=== PATIENT | male | born 1950 | race Caucasian/White ===

== ENCOUNTER 2019-11-19 20:01 | Emergency (ER) | payer MEDICARE, OTHER ==
--- NOTE | 2019-11-19 20:44 | EDM.PDOC ---
ED HPI GENERAL MEDICAL PROBLEM - General Chief Complaint: General Stated Complaint: SHORT OF BREATH,FEVER??? Time Seen by Provider: 11/19/19 20:10 Source of Information: Reports: Provider, RN History Limitations: Reports: Altered Mental Status - History of Present Illness INITIAL COMMENTS - FREE TEXT/NARRATIVE: 69-year-old male is brought in by EMS from [facility]. [place] provider called me informing me that the patient was being transferred for possible elevated blood pressure and shortness of breath. Patient was just admitted into the [facility] recently. Evidently the patient has a history of Alzheimer's dementia and was been treated inpatient at [facility] for UTI. He is on oral antibiotics. He has an indwelling Louis catheter with a leg bag. Upon patient's arrival he was in mild distress was able to state to me that he is having belly pain. He was straining trying to have a bowel movement. Upon further inspection of the patient's Louis, his leg bag was upside down and louis was inserted into the drainage part of the bag with it clamped. His Louis bag was empty. He was bladder scanned at 615 mL. His Louis was then flushed and showed no resistance and new bag was placed. Patient was draining urine without difficulty into the bag. His urine was very dark and concentrated. Suggest he is dehydrated. After approximately half hour later his blood pressure and pulse improved he was resting comfortably and his belly and abdomen were soft. Lab work was drawn including an EKG. 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 CBC showed leukocytosis and elevated neutrophils likely from results of his urinary tract infection. Onset: Today Location: Reports: Abdomen Quality: Reports: Pressure Severity: Moderate Improves with: Reports: None Worsens with: Reports: None Associated Symptoms: Reports: Confusion (dementia) - Related Data Allergies Allergy/AdvReac Type Severity Reaction Status Date / Time No Known Allergies Allergy Verified 11/19/19 22:46 ED ROS GENERAL - Review of Systems Review Of Systems: Unable To Obtain (due to patients dementia) Reason Not Obtained: dementia ED EXAM, GENERAL - Physical Exam Exam: See Below Exam Limited By: Altered Mental Status (confused) General Appearance: Alert, WD/WN, Mild Distress Eye Exam: Bilateral Eye: EOMI Ears: Hearing Grossly Normal Nose: Normal Inspection Throat/Mouth: Normal Inspection, Normal Voice, No Airway Compromise Head: Atraumatic, Normocephalic Neck: Normal Inspection, Supple, Non-Tender. No: Lymphadenopathy (L), Lymphadenopathy (R) Respiratory/Chest: No Respiratory Distress, Lungs Clear, Normal Breath Sounds, No Accessory Muscle Use. No: Respiratory Distress, Decreased Breath Sounds, Crackles Cardiovascular: Regular Rate, Rhythm, No Murmur Peripheral Pulses: 2+: Carotid (L), Carotid (R) GI/Abdominal: Normal Bowel Sounds, Distended (Male) Exam: Scrotal Swelling, Other (Indwelling catheter, patient has a leg Louis that was noticed to be upside down and inserted into the Louis through the drain with a clamped off. There is no urine in the bag.) Rectal (Males) Exam: Other (Patient had a BM in the toilet without evidence of bloody stool) Back Exam: Normal Inspection Extremities: Normal Inspection Neurological: Alert, Confused (Pleasantly confused) Psychiatric: Depressed Mood, Flat Affect Skin Exam: Warm, Dry, Intact, Normal Color, No Rash Lymphatic: No Adenopathy EKG INTERPRETATION EKG Date: 11/19/19 Rhythm: NSR Rate (Beats/Min): 96 [place]: LAD-Left [place] Deviation P-Wave: Present QRS: Normal ST-T: Normal QT: Normal Comparison: NA - No Prior EKG EKG Interpretation Comments: Normal sinus rhythm Left axis deviation inferior infarct age undetermined Abnormal ECG Course - Vital Signs Last Recorded V/S: Last Vital Signs Temp 97.1 F 11/19/19 22:20 Pulse 73 11/19/19 22:44 Resp 14 11/19/19 22:44 BP 125/51 L 11/19/19 22:44 Pulse Ox 95 11/19/19 22:44 - Orders/Labs/Meds Orders: Active Orders 24 hr Category Date Time Status EKG Documentation Completion [RC] ASDIRECTED Care 11/19/19 20:15 Active CULTURE URINE [RM] Stat Lab 11/19/19 22:43 Ordered EKG 12 Lead [EK] Stat Ther 11/19/19 20:14 Ordered Labs: Laboratory Tests 11/19/19 11/19/19 11/19/19 Range/Units 20:40 20:40 22:00 WBC 17.31 H (5.00-10.00) 10^3/uL RBC 4.40 L (4.50-6.00) 10^6/uL Hgb 14.4 (13.0-17.0) g/dL Hct 40.7 (40.0-52.0) % MCV 92.5 H (82.0-92.0) fL MCH 32.7 H (27.0-31.0) pg MCHC 35.4 (32.0-36.0) g/dL RDW 12.4 (11.5-14.5) % Plt Count 215 (150-400) 10^3/uL MPV 9.9 (7.4-10.4) fL Immature Gran % (Auto) 1.2 (0.0-5.0) % Neut % (Auto) 87.8 H (50.0-70.0) % Lymph % (Auto) 4.3 L (20.0-40.0) % [place] % (Auto) 6.4 (2.0-8.0) % Eos % (Auto) 0.2 L (1.0-3.0) % Baso % (Auto) 0.1 (0.0-1.0) % Neut # (Auto) 15.20 H (2.50-7.00) 10^3/uL Lymph # (Auto) 0.75 L (1.00-4.00) 10^3/uL [place] # (Auto) 1.10 H (0.10-0.80) 10^3/uL Eos # (Auto) 0.03 L (0.10-0.30) 10^3/uL Baso # (Auto) 0.02 (0.00-0.10) 10^3/uL Immature Gran # (Auto) 0.21 (0.00-0.50) 10^3/uL Sodium 140 (136-145) mmol/L Potassium 3.5 (3.3-5.3) mmol/L Chloride 105 (98-115) mmol/L Carbon Dioxide 20.3 L (21.0-32.0) mmol/L Anion Gap 18.2 H (5-15) mmol/L BUN 21 (6-25) mg/dL Creatinine 1.36 H (0.51-1.17) mg/dL Est Cr Clr Drug Dosing 51.44 mL/min Estimated GFR (MDRD) 52 mL/min Glucose 172 H (75 - 99) mg/dL Calcium 8.8 (8.7-10.3) mg/dL Total Bilirubin 1.0 (0.2-1.0) mg/dL AST 27 (15-37) U/L ALT 66 (12-78) U/L Alkaline Phosphatase 67 (46-116) IU/L Troponin I 0.05 (0.00-0.070) ng/mL Total Protein 7.5 (6.4-8.2) g/dL Albumin 2.91 L (3.00-4.80) g/dL Specimen Type Urincath Urine Color Yellow (YELLOW) Urine Appearance Cloudy H (CLEAR) Urine pH 5.0 (5.0-9.0) Ur Specific [place] 1.020 (1.005-1.030) Urine Protein 30 H (NEGATIVE) mg/dL Urine Glucose (UA) 100 H (NEGATIVE) mg/dL Urine Ketones Negative (NEGATIVE) mg/dL Urine Occult Blood Large H (NEGATIVE) Urine Nitrite Negative (NEGATIVE) Urine Bilirubin Negative (NEGATIVE) Urine Urobilinogen 0.2 (0.2-1.0) E.U./dL Ur Leukocyte Esterase Moderate H (NEGATIVE) Urine RBC 75-100 H (0-5) /HPF Urine WBC 50-75 H (0-5) /HPF Ur Epithelial Cells Rare /LPF Amorphous Sediment Many H (0/HPF) /HPF Urine Bacteria Few (NONE TO FEW) /HPF Meds: Medications Discontinued Medications Generic Name Dose Route Start Last Admin Trade Name Gildardoq PRN Reason Stop Dose Admin Ceftriaxone Sodium 1 gm 11/19/19 22:29 11/19/19 22:35 Rocephin IVPUSH 11/19/19 22:30 1 gm ONETIME ONE Administration Sodium Chloride 1,000 mls @ 999 mls/hr 11/19/19 21:10 11/19/19 21:10 Normal Saline IV 11/19/19 22:10 999 mls/hr .BOLUS ONE Administration Sterile Water Confirm 11/19/19 22:33 11/19/19 22:35 Sterile Water For Injection Administered 11/19/19 22:34 10 mls/hr Dose Administration 20 mls @ as directed .ROUTE .STK-MED ONE - Re-Assessments/Exams Free Text/Narrative Re-Assessment/Exam: 11/19/19 22:20 Patient is now resting comfortably. Denies abdominal pain. His blood pressure 142/51, and pulse is 78. He is resting comfortably sleeping on his side. Departure - Departure Time of Disposition: 23:30 Disposition: DC/Tfer to SNF 03 Condition: Fair Clinical Impression: Neutrophilic leukocytosis, Dehydration Urinary tract infection associated with indwelling urethral catheter Qualifiers: Encounter type: initial encounter Qualified Code(s): T83.511A - Infection and inflammatory reaction due to indwelling urethral catheter, initial encounter Dementia Qualifiers: Dementia type: unspecified type Dementia behavioral disturbance: without behavioral disturbance Qualified Code(s): F03.90 - Unspecified dementia without behavioral disturbance - Discharge Information Referrals: Karen Haywood MD [Primary Care Provider] - Forms: ED Department Discharge Sepsis Event Note - Focused Exam Vital Signs: Vital Signs Temp Pulse Resp BP Pulse Ox 11/19/19 22:44 73 14 125/51 L 95 11/19/19 22:20 97.1 F 83 14 142/51 H 93 L 11/19/19 21:30 88 14 157/61 H 95 11/19/19 21:00 93 16 189/84 H 95 11/19/19 20:45 97 16 159/71 H 95 11/19/19 20:01 97.7 F 101 H 26 H 169/95 H 95 Date Exam was Performed: 11/19/19 Time Exam was Performed: 22:48 - My Orders Last 24 Hours: My Active Orders 11/19/19 20:14 EKG 12 Lead [EK] Stat 11/19/19 20:15 EKG Documentation Completion [RC] ASDIRECTED 11/19/19 22:43 CULTURE URINE [RM] Stat - Assessment/Plan Last 24 Hours: My Active Orders 11/19/19 20:14 EKG 12 Lead [EK] Stat 11/19/19 20:15 EKG Documentation Completion [RC] ASDIRECTED 11/19/19 22:43 CULTURE URINE [RM] Stat Assessment:: 1. Neutrophilic leukocytosis likely secondary to urinary tract infection, currently on oral antibiotics. Patient was given 1 g of IV Rocephin. 2. Hypertension urgency secondary to obstructing Louis catheter placed incorrectly. Now corrected 3. Dehydration, 1 L normal saline IV fluids given. 4. Dementia/Alzheimer's, stable 5. Continue patient on oral Levaquin for UTI 6. Urine has been cultured, follow-up needs to be on Friday with primary care and evaluation. Plan: 1. Patient will given 1 L normal saline IV for dehydration 2. Rocephin 1 g IV, continue oral antibiotics for UTI 3. Encourage nursing staff to push oral fluids. 4. Proper placement of Louis will be educated to alf. 5. Follow-up with primary care on Friday, new urine analysis and culture has been taken in the emergency room.
[2019-11-19] MEDS: Sodium Chloride 0.9% 1,000 ML IV ONE (21:10)
[2019-11-19 21:24] LABS: ANION GAP 18.2 mmol/L (5-15)
[2019-11-19] MEDS: cefTRIAXone 1 GM Vial IVPUSH ONE (22:35)
[2019-11-19] MEDS: Water For Injection, Sterile 20 ML ONE (22:35)
== END 2019-11-19 23:45 ==
LOC: KA.ED 20:01
DX: T83.511A Infection and inflammatory reaction due to indwelling urethral catheter, initial encounter (principal); D72.828 Other elevated white blood cell count; E86.0 Dehydration; F03.90 Unspecified dementia, unspecified severity, without behavioral disturbance, psychotic disturbance, mood disturbance, and anxiety
CPT/HCPCS: 36415; 51798; 80053; 81001; 84484; 85025; 87086; 93005; 96361; 96374; 99283; 99285-25; J0696; J7030

== ENCOUNTER 2020-06-23 00:05 | Emergency (ER) | payer MEDICARE, SELFPAY ==
[2020-06-23] MEDS ORDERED: Sodium Chloride 0.9% 10 ML Syringe FLUSH PRN (00:09)
[2020-06-23] MEDS ORDERED: Sodium Chloride 0.9% 1,000 ML IV ONE ×3 (00:09→01:31)
--- NOTE | 2020-06-23 00:15 | EDM.PDOC ---
ED HPI GENERAL MEDICAL PROBLEM - General Chief Complaint: General Stated Complaint: SOB Time Seen by Provider: 06/23/20 00:10 Source of Information: Reports: EMS History Limitations: Reports: Uncooperative, Other (DEMENTIA) - History of Present Illness INITIAL COMMENTS - FREE TEXT/NARRATIVE: 69 YO WM PRESENTS TO ER BY EMS FROM [facility]. PT WITH RECENTLY DIAGNOSED COVID (2 WEEKS AGO) WHO HAS APPEARED TO [place] STAFF TO BE RESTLESS AND STATED HE DOESN'T FEEL WELL WITH ASSOCIATED TACHYCARDIA AND HYPERTENSION. PT WITH UNDERLYING DEMENTIA WHO IS NONVERBAL AND SEEMS AGITATED WHILE IN ER. PT UNABLE TO ANSWER QUESTIONS REGARDING HIS CONDITION DUE TO HIS NONVERBAL STATE. GCS-15. PT HAS AN INDWELLING [place] CATHETER IN PLACE AND DOCUMENTED FEVER 101 AT [facility] TONIGHT. PT WAS GIVEN TYLENOL 1G EARLY THIS EVENING. Onset: Today Location: Reports: Generalized Associated Symptoms: Reports: No Other Symptoms - Related Data Allergies Allergy/AdvReac Type Severity Reaction Status Date / Time No Known Allergies Allergy Verified 06/23/20 00:59 Home Meds: Home Meds Cyanocobalamin (Vitamin B-12) [Vitamin B-12] 1,000 mcg PO DAILY 11/19/19 [History] Finasteride 5 mg PO DAILY 11/19/19 [History] Losartan [Cozaar] 100 mg PO DAILY 11/19/19 [History] Magnesium Chloride [Mag Delay] 64 mg PO DAILY 11/19/19 [History] Multivitamin 1 each PO DAILY 11/19/19 [History] QUEtiapine [SEROquel] 25 mg PO BEDTIME 11/19/19 [History] Tamsulosin [Tamsulosin 24 Hr] 0.4 mg PO DAILY 11/19/19 [History] Thiamine [Vitamin B-1] 100 mg PO BEDTIME 11/19/19 [History] cephALEXin [Cephalexin] 500 mg PO TID 11/19/19 [History] levoFLOXacin [Levaquin] 500 mg PO DAILY 11/19/19 [History] metFORMIN [Glucophage] 500 mg PO BIDMEALS 11/19/19 [History] Past Medical History Cardiovascular History: Reports: Hypertension Neurological History: Reports: Alzheimers Disease Endocrine/Metabolic History: Reports: Diabetes, Type II ED ROS GENERAL - Review of Systems Review Of Systems: Comprehensive ROS is negative, except as noted in HPI. Constitutional: Reports: Fever, Chills Respiratory: Reports: Shortness of Breath Neurological: Reports: Pre-Existing Deficit, Trouble Speaking Psychiatric: Reports: Agitation, Anxiety, Confusion Hematologic/Lymphatic: Reports: No Symptoms Immunologic: Reports: No Symptoms ED EXAM, GENERAL - Physical Exam Exam: See Below Exam Limited By: Altered Mental Status General Appearance: Alert, Anxious, Mild Distress Eye Exam: Bilateral Eye: EOMI, PERRL Head: Atraumatic, Normocephalic Neck: Normal Inspection, Supple, Non-Tender, Full Range of Motion Respiratory/Chest: No Respiratory Distress, Lungs Clear, Normal Breath Sounds, Chest Non-Tender Cardiovascular: Normal Peripheral Pulses, Regular Rate, Rhythm, No Edema, No Gallop, No JVD, No Murmur, No Rub, Tachycardia GI/Abdominal: Normal Bowel Sounds, Soft, Non-Tender, No Organomegaly, No Distention, No Abnormal Bruit, No Mass Back Exam: Normal Inspection, Full Range of Motion, NT Extremities: Normal Inspection, Normal Range of Motion, Non-Tender, Normal Capillary Refill, No Pedal Edema Neurological: Alert, CN II-XII Intact, Confused Psychiatric: Anxious, Flat Affect Skin Exam: Warm, Dry, Intact, Normal Color, No Rash #1 Interpretation EKG Date: 06/23/20 Time: 00:57 Rhythm: NSR Rate (Beats/Min): 122 [place]: Normal P-Wave: Present QRS: Normal ST-T: Normal QT: Normal Comparison: NA - No Prior EKG Course - Vital Signs Last Recorded V/S: Last Vital Signs Temp 102 F H 06/23/20 02:15 Pulse 125 H 06/23/20 01:56 Resp 26 H 06/23/20 01:56 BP 168/98 H 06/23/20 01:56 Pulse Ox 93 L 06/23/20 01:56 - Orders/Labs/Meds Orders: Active Orders 24 hr Category Date Time Status Chest 1V Frontal [CR] Stat Exams 06/23/20 01:03 Ordered Chest 2V [CR] Stat Exams 06/23/20 00:09 Stop Req CULTURE BLOOD [BC] Stat Lab 06/23/20 00:15 Received CULTURE BLOOD [BC] Stat Lab 06/23/20 00:25 Received Sodium Chloride 0.9% [Normal Saline] 1,000 ml Med 06/23/20 01:45 Active IV ASDIRECTED Sodium Chloride 0.9% [Saline Flush] Med 06/23/20 00:09 Active 10 ml FLUSH Q8HR PRN Blood Culture x2 Reflex Set [OM.PC] Stat Oth 06/23/20 00:09 Ordered Isolation [COMM] Routine Oth 06/23/20 00:26 Ordered Saline Lock Insert [OM.PC] Stat Oth 06/23/20 00:09 Ordered Severe Sepsis Onset Time [OM.PC] Stat Oth 06/23/20 00:09 Ordered EKG 12 Lead [EK] Stat Ther 06/23/20 00:09 Ordered Medication Orders Sodium Chloride (Normal Saline) 1,000 mls @ 150 mls/hr IV ASDIRECTED TRISTA Sodium Chloride (Saline Flush) 10 ml FLUSH Q8HR PRN PRN Reason: keep vein open Last Admin: 06/23/20 00:57 Dose: 10 ml Documented by: MARYANN Labs: Laboratory Tests 06/23/20 06/23/20 06/23/20 Range/Units 00:25 00:25 00:25 WBC 16.91 H (5.00-10.00) 10^3/uL RBC 5.07 (4.50-6.00) 10^6/uL Hgb 15.9 D (13.0-17.0) g/dL Hct 47.8 (40.0-52.0) % MCV 94.3 H (82.0-92.0) fL MCH 31.4 H (27.0-31.0) pg MCHC 33.3 (32.0-36.0) g/dL RDW 13.9 (11.5-14.5) % Plt Count 195 (150-400) 10^3/uL MPV 10.2 (7.4-10.4) fL Immature Gran % (Auto) 0.4 (0.0-5.0) % Neut % (Auto) 90.3 H (50.0-70.0) % Lymph % (Auto) 3.0 L (20.0-40.0) % [place] % (Auto) 6.0 (2.0-8.0) % Eos % (Auto) 0.1 L (1.0-3.0) % Baso % (Auto) 0.2 (0.0-1.0) % Neut # (Auto) 15.27 H (2.50-7.00) 10^3/uL Lymph # (Auto) 0.51 L (1.00-4.00) 10^3/uL [place] # (Auto) 1.01 H (0.10-0.80) 10^3/uL Eos # (Auto) 0.01 L (0.10-0.30) 10^3/uL Baso # (Auto) 0.04 (0.00-0.10) 10^3/uL Immature Gran # (Auto) 0.07 (0.00-0.50) 10^3/uL Sodium 135 L (136-145) mmol/L Potassium 4.4 (3.3-5.3) mmol/L Chloride 101 (98-115) mmol/L Carbon Dioxide 21.0 (21.0-32.0) mmol/L Anion Gap 17.4 H (5-15) mmol/L BUN 19 (6-25) mg/dL Creatinine 1.01 (0.51-1.17) mg/dL Est Cr Clr Drug Dosing 73.63 mL/min Estimated GFR (MDRD) > 60 mL/min Glucose 241 H (75 - 99) mg/dL Lactic Acid 5.8 H (0.4-2.0) mmol/L Calcium 9.6 (8.7-10.3) mg/dL Total Bilirubin 1.0 (0.2-1.0) mg/dL AST 47 H (15-37) U/L ALT 83 H (12-78) U/L Alkaline Phosphatase 73 (46-116) IU/L Troponin I 0.04 (0.00-0.070) ng/mL Total Protein 8.0 (6.4-8.2) g/dL Albumin 3.51 (3.00-4.80) g/dL Specimen Type Urine Color (YELLOW) Urine Appearance (CLEAR) Urine pH (5.0-9.0) Ur Specific [place] (1.005-1.030) Urine Protein (NEGATIVE) mg/dL Urine Glucose (UA) (NEGATIVE) mg/dL Urine Ketones (NEGATIVE) mg/dL Urine Occult Blood (NEGATIVE) Urine Nitrite (NEGATIVE) Urine Bilirubin (NEGATIVE) Urine Urobilinogen (0.2-1.0) E.U./dL Ur Leukocyte Esterase (NEGATIVE) Urine RBC (0-5) /HPF Urine WBC (0-5) /HPF Amorphous Sediment (0/HPF) /HPF Urine Bacteria (NONE TO FEW) /HPF SARS CoV-2 RNA Rapid [place] (NEGATIVE) 06/23/20 06/23/20 Range/Units 00:50 01:06 WBC (5.00-10.00) 10^3/uL RBC (4.50-6.00) 10^6/uL Hgb (13.0-17.0) g/dL Hct (40.0-52.0) % MCV (82.0-92.0) fL MCH (27.0-31.0) pg MCHC (32.0-36.0) g/dL RDW (11.5-14.5) % Plt Count (150-400) 10^3/uL MPV (7.4-10.4) fL Immature Gran % (Auto) (0.0-5.0) % Neut % (Auto) (50.0-70.0) % Lymph % (Auto) (20.0-40.0) % [place] % (Auto) (2.0-8.0) % Eos % (Auto) (1.0-3.0) % Baso % (Auto) (0.0-1.0) % Neut # (Auto) (2.50-7.00) 10^3/uL Lymph # (Auto) (1.00-4.00) 10^3/uL [place] # (Auto) (0.10-0.80) 10^3/uL Eos # (Auto) (0.10-0.30) 10^3/uL Baso # (Auto) (0.00-0.10) 10^3/uL Immature Gran # (Auto) (0.00-0.50) 10^3/uL Sodium (136-145) mmol/L Potassium (3.3-5.3) mmol/L Chloride (98-115) mmol/L Carbon Dioxide (21.0-32.0) mmol/L Anion Gap (5-15) mmol/L BUN (6-25) mg/dL Creatinine (0.51-1.17) mg/dL Est Cr Clr Drug Dosing mL/min Estimated GFR (MDRD) mL/min Glucose (75 - 99) mg/dL Lactic Acid (0.4-2.0) mmol/L Calcium (8.7-10.3) mg/dL Total Bilirubin (0.2-1.0) mg/dL AST (15-37) U/L ALT (12-78) U/L Alkaline Phosphatase (46-116) IU/L Troponin I (0.00-0.070) ng/mL Total Protein (6.4-8.2) g/dL Albumin (3.00-4.80) g/dL Specimen Type Urincath Urine Color Light yellow (YELLOW) Urine Appearance Turbid H (CLEAR) Urine pH 5.5 (5.0-9.0) Ur Specific [place] 1.025 (1.005-1.030) Urine Protein Trace H (NEGATIVE) mg/dL Urine Glucose (UA) Negative (NEGATIVE) mg/dL Urine Ketones Negative (NEGATIVE) mg/dL Urine Occult Blood Moderate H (NEGATIVE) Urine Nitrite Negative (NEGATIVE) Urine Bilirubin Negative (NEGATIVE) Urine Urobilinogen 0.2 (0.2-1.0) E.U./dL Ur Leukocyte Esterase Large H (NEGATIVE) Urine RBC 20-30 H (0-5) /HPF Urine WBC 50-75 H (0-5) /HPF Amorphous Sediment Moderate H (0/HPF) /HPF Urine Bacteria Many H (NONE TO FEW) /HPF SARS CoV-2 RNA Rapid [place] Negative (NEGATIVE) Meds: Medications Generic Name Dose Route Start Last Admin Trade Name Freq PRN Reason Stop Dose Admin Sodium Chloride 1,000 mls @ 150 mls/hr 06/23/20 01:45 Normal Saline IV ASDIRECTED TRISTA Sodium Chloride 10 ml 06/23/20 00:09 06/23/20 00:57 Saline Flush FLUSH 10 ml Q8HR PRN Administration keep vein open Discontinued Medications Generic Name Dose Route Start Last Admin Trade Name Freq PRN Reason Stop Dose Admin Acetaminophen 1,000 mg 06/23/20 01:33 06/23/20 01:43 Tylenol Extra Strength PO 06/23/20 01:34 1,000 mg ONETIME ONE Administration Ceftriaxone Sodium 2 gm 06/23/20 01:01 06/23/20 01:18 Rocephin IVPUSH 06/23/20 01:02 2 gm ONETIME ONE Administration Sodium Chloride 1,000 mls @ 1,000 drops/min 06/23/20 00:09 06/23/20 04:03 Normal Saline IV 06/23/20 00:23 Not Given BOLUS ONE Protocol Sodium Chloride 1,000 mls @ 999 mls/hr 06/23/20 00:32 06/23/20 00:36 Normal Saline IV 06/23/20 01:32 999 mls/hr .BOLUS ONE Administration Sodium Chloride 1,000 mls @ 999 mls/hr 06/23/20 01:31 06/23/20 01:42 Normal Saline IV 06/23/20 02:31 999 mls/hr .BOLUS ONE Administration Lorazepam 2 mg 06/23/20 00:31 06/23/20 00:47 Ativan IVPUSH 06/23/20 00:32 2 mg ONETIME ONE Administration - Radiology Interpretation Free Text/Narrative:: CXR- NAD Departure - Departure Time of Disposition: 01:20 Disposition: DC/Tfer to Acute Hospital 02 Condition: Serious Clinical Impression: Hypertension UTI (urinary tract infection) Qualifiers: Indwelling urinary catheter type: indwelling urethral catheter Encounter type: initial encounter Sepsis Qualifiers: Sepsis acute organ dysfunction status: unspecified - Discharge Information Forms: ED Department [facility] Event Note (ED) - Focused Exam Vital Signs: Vital Signs Temp Temp Pulse Resp BP Pulse Ox 06/23/20 02:15 102 F H 06/23/20 01:56 103.7 F H 125 H 26 H 168/98 H 93 L 06/23/20 01:43 102.5 F H 06/23/20 01:30 102.5 F H 123 H 23 H 193/108 H 96 06/23/20 01:01 157/129 H 06/23/20 01:00 123 H 22 H 207/111 H 95 06/23/20 00:45 124 H 28 H 157/129 H 06/23/20 00:37 202/111 H 06/23/20 00:30 120 H 24 H 177/100 H 94 L 06/23/20 00:22 97.5 F 106 H 23 H 180/91 H 96 - My Orders Last 24 Hours: My Active Orders 06/23/20 00:09 Chest 2V [CR] Stat Sodium Chloride 0.9% [Saline Flush] 10 ml FLUSH Q8HR PRN Blood Culture x2 Reflex Set [OM.PC] Stat Saline Lock Insert [OM.PC] Stat Severe Sepsis Onset Time [OM.PC] Stat EKG 12 Lead [EK] Stat 06/23/20 00:15 CULTURE BLOOD [BC] Stat 06/23/20 00:25 CULTURE BLOOD [BC] Stat 06/23/20 00:26 Isolation [COMM] Routine 06/23/20 01:03 Chest 1V Frontal [CR] Stat 06/23/20 01:45 Sodium Chloride 0.9% [Normal Saline] 1,000 ml IV ASDIRECTED - Assessment/Plan Last 24 Hours: My Active Orders 06/23/20 00:09 Chest 2V [CR] Stat Sodium Chloride 0.9% [Saline Flush] 10 ml FLUSH Q8HR PRN Blood Culture x2 Reflex Set [OM.PC] Stat Saline Lock Insert [OM.PC] Stat Severe Sepsis Onset Time [OM.PC] Stat EKG 12 Lead [EK] Stat 06/23/20 00:15 CULTURE BLOOD [BC] Stat 06/23/20 00:25 CULTURE BLOOD [BC] Stat 06/23/20 00:26 Isolation [COMM] Routine 06/23/20 01:03 Chest 1V Frontal [CR] Stat 06/23/20 01:45 Sodium Chloride 0.9% [Normal Saline] 1,000 ml IV ASDIRECTED Assessment:: 1. UROSEPSIS 2. HYPERTENSION 3. TACHYCARDIA Plan: 1. TRANSFER TO [facility]- DR ARAUJO ACCEPTING 2. ROCEPHIN 2G IV NOW 3. NS 2L BOLUS FOLLOWED BY 150CC/HR 4. SUPPORTIVE CARE
[2020-06-23] MEDS ORDERED: LORazepam 2 MG/ML SDV IVPUSH ONE (00:31)
[2020-06-23 00:59] LABS: ANION GAP 17.4 mmol/L (5-15); CHLORIDE,CL 101 mmol/L (98-115); SODIUM,NA 135 mmol/L (136-145)
[2020-06-23] MEDS ORDERED: cefTRIAXone 2 GM Vial IVPUSH ONE (01:01)
[2020-06-23] MEDS ORDERED: Acetaminophen 500 MG Tab PO ONE (01:33)
[2020-06-23] MEDS ORDERED: Sodium Chloride 0.9% 1,000 ML IV SCH (01:45)
--- NOTE | 2020-06-23 09:24 | CR ---
[id number] RAD/RAD Chest PA or AP 1V EXAM: FRONTAL CHEST INDICATION: TACHYCARDIA. COMPARISON: None. DISCUSSION: Evaluation is somewhat limited by tachycardia with central vascular crowding and mild basilar atelectasis. The heart is enlarged without evidence of edema. No focal infiltrates are identified. No effusion. Possible hiatus hernia. IMPRESSION: 1. Mild cardiomegaly without evidence of congestive heart failure. Pete Tapia MD 06/23/20 0923 Thank you for allowing us to participate in the care of your patient.
== END 2020-06-23 02:20 ==
LOC: KA.ED 00:05
DX: T83.511A Infection and inflammatory reaction due to indwelling urethral catheter, initial encounter (principal); A41.9 Sepsis, unspecified organism; I10 Essential (primary) hypertension; E11.9 Type 2 diabetes mellitus without complications; G30.9 Alzheimer's disease, unspecified; F02.80 Dementia in other diseases classified elsewhere, unspecified severity, without behavioral disturbance, psychotic disturbance, mood disturbance, and anxiety; Z79.84 Long term (current) use of oral hypoglycemic drugs; Z79.899 Other long term (current) drug therapy; Z20.828 Contact with and (suspected) exposure to other viral communicable diseases
CPT/HCPCS: 36415; 71045; 80053; 81001; 83605; 84484; 85025; 87040; 87077; 93005; 96374; 96375; 99284; 99285-25; A9270-GY; J0696; J2060; J7030; U0002

== ENCOUNTER 2024-02-27 16:51 | Emergency (ER) | payer MEDICARE ==
[2024-02-27 17:26] LABS: BASOPHILS ABSOLUTE AUTO 0.03 10^3/uL (0.00-0.10); BASOPHILS PERCENT AUTO 0.3 % (0.0-1.0); EOSINOPHILS PERCENT AUTO 0.9 % (1.0-3.0); HEMATOCRIT 44.3 % (40.0-52.0); IMMATURE GRAN ABSOLUTE AUTO 0.03 10^3/uL (0.00-0.50); IMMATURE GRAN PERCENT AUTO 0.3 % (0.0-5.0); LYMPHOCYTES ABSOLUTE AUTO 1.18 10^3/uL (1.00-4.00); LYMPHOCYTES PERCENT AUTO 10.2 % (20.0-40.0); MEAN CORPUSCULAR HEMOGLOBIN 30.7 pg (27.0-31.0); MEAN CORPUSCULAR HGB CONC 33.9 g/dL (32.0-36.0); MEAN CORPUSCULAR VOLUME 90.6 fL (82.0-92.0); MEAN PLATELET VOLUME 9.9 fL (7.4-10.4); MONOCYTES ABSOLUTE AUTO 1.04 10^3/uL (0.10-0.80); NEUTROPHILS ABSOLUTE AUTO 9.15 10^3/uL (2.50-7.00); NEUTROPHILS PERCENT AUTO 79.3 % (50.0-70.0); PLATELET COUNT,PLT 165 10^3/uL (150-400); RED BLOOD CELL COUNT 4.89 10^6/uL (4.50-6.00); RED CELL DISTRIBUTION WIDTH 13.7 % (11.5-14.5); WHITE BLOOD CELL COUNT,WBC 11.53 10^3/uL (5.00-10.00)
[2024-02-27 17:38] LABS: COLOR,URINE RED (YELLOW)
[2024-02-27 17:39] LABS: APPEARANCE,URINE CLOUDY (CLEAR); BACTERIA,URINE FEW /HPF (NONE TO FEW); BILIRUBIN,URINE NEGATIVE (NEGATIVE); EPITHELIAL CELLS,URINE RARE /LPF; GLUCOSE,URINE >=1000 mg/dL (NEGATIVE); KETONES,URINE TRACE mg/dL (NEGATIVE); LEUKOCYTE ESTERASE,URINE NEGATIVE (NEGATIVE); NITRITE,URINE NEGATIVE (NEGATIVE); OCCULT BLOOD,URINE MODERATE (NEGATIVE); PROTEIN,URINE >=300 mg/dL (NEGATIVE); RBC,URINE PACKED /HPF (0-5); UROBILINOGEN,URINE 0.2 E.U./dL (0.2-1.0); WBC,URINE 0-5 /HPF (0-5)
[2024-02-27 17:41] LABS: ALBUMIN 3.42 g/dL (3.40-5.00); ANION GAP 15.3 mmol/L (5-15); BILIRUBIN TOTAL 0.6 mg/dL (0.2-1.0); CALCIUM 8.8 mg/dL (8.7-10.3); CARBON DIOXIDE,CO2 24.8 mmol/L (21.0-32.0); CREATININE 1.01 mg/dL (0.51-1.17); EST CRCL DRUG DOSING (CG) 59.08 mL/min; POTASSIUM,K 4.1 mmol/L (3.5-5.1); PROTEIN TOTAL,TP 7.2 g/dL (6.4-8.2)
[2024-02-27] MEDS: Cefdinir 300 MG Cap PO ONE (17:59)
== END 2024-02-27 18:09 ==
LOC: KA.ED 16:51
DX: N39.0 Urinary tract infection, site not specified (principal); I10 Essential (primary) hypertension; E11.9 Type 2 diabetes mellitus without complications; R31.0 Gross hematuria; Z79.899 Other long term (current) drug therapy; Z79.84 Long term (current) use of oral hypoglycemic drugs
CPT/HCPCS: 51798; 80053; 81001; 85025; 87086; 87088; 99284-25; A9270-GY